=== PATIENT | female | born 1960 | race African-American/Black ===

== ENCOUNTER → 2021-01-23 | Outpatient (CLI) | payer OTHER ==
--- NOTE | 2021-01-23 10:25 | EKG ---
[facility] [address] [place] [address] Test Date: 2021-01-23 Test Time: 10:23:26 Pat Name: MACIE WILLIAMSON Department: Room: Gender: F [employer] Professor: [place] : 1960 Requested By: LEA LAWSON Order Number: [id number] Reading MD: Anastacio Sanford MD Measurements Intervals [place] Rate: 62 P: 59 WA: 184 QRS: -10 QRSD: 90 T: 0 QT: 430 QTc: 439 Interpretive Statements SINUS RHYTHM Electronically Signed On 01-27-2021 15:20:43 CDT by Anastacio Sanford MD
--- NOTE | 2021-01-23 13:23 | CARD ---
MR#: [id number] Date of Study: 01/23/2021 Ordering Physician: LEA LAWSON, Referring Physician: LEA LAWSON, Tech: Ashlee Prater [facility] APPROV[facility] REPORT EXAM: Two-dimensional and M-mode echocardiogram with Doppler and color Doppler. Other Information Quality : AverageHR: 62bpm Rhythm : NSR INDICATION RISK FACTORS Hypertension 2D DIMENSIONS RVDd1.9 (2.9-3.5cm)Left Atrium(2D)4.0 (1.6-4.0cm) IVSd0.8 (0.7-1.1cm)Aortic Root(2D)3.3 (2.0-3.7cm) LVDd4.9 (3.9-5.9cm)LVOT Diameter2.1 (1.8-2.4cm) PWd0.9 (0.7-1.1cm)LVDs3.3 (2.5-4.0cm) FS (%) 32.3 %SV68.5 ml Aortic Valve AoV Peak Brian.110.1cm/sAoV VTI23.4cm AO Peak GR.4.8mmHgLVOT Peak Brian.88.8cm/s AO Mean GR.2mmHgAVA (VMAX)2.92cm2 Mitral Valve MV E Jhfktsbq77.4cm/sMV DECEL NCLT537ym MV A Bquefwuh83.3cm/sE/A Ratio1.3 Pulmonary Valve PV Peak Mymzgssq93.1cm/s Tricuspid Valve TR P. Pjfydona492ar/sTR Peak Gr.23mmHg Pulmonary Vein S1 Sxjllbtg35.3cm/sD2 Czjknxsa29.3cm/s PVa [id number] LEFT VENTRICLE The left ventricle is normal size. There is normal left ventricular wall thickness. The left ventricu lar systolic function is normal and the ejection fraction is within normal range. Estimated ejection fraction 55-60%. There is normal LV segmental wall motion. The left ventricular diastolic function an d filling is normal for age. RIGHT VENTRICLE The right ventricle is normal size. There is normal right ventricular wall thickness. The right ventr icular systolic function is normal. ATRIA The left atrium size is normal. The right atrium size is normal. The interatrial septum is intact wit h no evidence for an atrial septal defect or patent foramen ovale as noted on 2-D or Doppler imaging. AORTIC VALVE The aortic valve is normal in structure and function. Doppler and Color Flow revealed no significant aortic regurgitation. There is no significant aortic valvular stenosis. MITRAL VALVE The mitral valve is normal in structure and function. There is no evidence of mitral valve prolapse. There is no mitral valve stenosis. Doppler and Color-flow revealed mild mitral regurgitation. TRICUSPID VALVE The tricuspid valve is normal in structure and function. Doppler and Color Flow revealed trace to mil d tricuspid regurgitation. Estimated PAP 26-28 mmHg. There is no tricuspid valve stenosis. PULMONIC VALVE The pulmonary valve is normal in structure and function. Doppler and Color Flow revealed mild pulmoni c valvular regurgitation. GREAT VESSELS The aortic root is normal in size. The ascending aorta is normal in size. The IVC is normal in size a nd collapses >50% with inspiration. PERICARDIAL EFFUSION There is no evidence of significant pericardial effusion. Critical Notification Critical Value: No <Conclusion> The left ventricle is normal size. The left ventricular systolic function is normal and the ejection fraction is within normal range. E stimated ejection fraction 55-60%. Doppler and Color Flow revealed no significant aortic regurgitation. There is no significant aortic valvular stenosis. Doppler and Color-flow revealed mild mitral regurgitation. Doppler and Color Flow revealed trace to mild tricuspid regurgitation. Estimated PAP 26-28 mmHg. Signed by : Srinivasan Haney MD Electronically Approved : 01/23/2021 13:22:41
== END ==
LOC: ECHO 09:52
PROVIDERS: ATTEND Internal Medicine
DX: Z00.5 Encounter for examination of potential donor of organ and tissue (principal); I08.8 Other rheumatic multiple valve diseases
CPT/HCPCS: 93005; 93306